=== PATIENT | male | born 1980 | race Two or more races ===

== ENCOUNTER 2018-05-01 13:28 | Emergency (ER) | payer OTHER ==
[~2018-05-01] VITALS: Ht 180.3 cm; Wt 97.5 kg
[~2018-05-01 13:28] MED LIST: ALPR0.5T4 PO; HYDR-3980 PO; OLME1TAB26 PO
--- NOTE | 2018-05-01 14:30 | NUR ---
Patient discharged to home in stable conditon & birsk steady gait. Written and verbal after care instructions given to patient. Patient verbalizes understanding of instructions.
== END 2018-05-01 14:31 | disposition home or self-care (01) ==
LOC: ER 13:31
DX: R60.9 Edema, unspecified (principal); I10 Essential (primary) hypertension; Z88.2 Allergy status to sulfonamides
CPT/HCPCS: A4663